=== PATIENT | male | born 1960 | race Caucasian/White ===

== ENCOUNTER 2016-07-21 15:14 | Emergency (ER) | payer BC, OTHER ==
[2016-07-21 15:54] LABS: Hematocrit 43 % (42-52); Hemoglobin 14.6 g/dl (14.0-18.0); Mean Corpuscular HGB Conc 34 g/dl (31-36); Mean Corpuscular Hemoglobin 31 pg (27-31); Mean Corpuscular Volume 90 fL (80-94); Mean Platelet Volume 10 um3 (7.4-10.4); Red Blood Count 4.79 10^6/ul (4.0-5.4); Red Cell Distribution Width 13 % (10.5-15); White Blood Count 6.5 10^3/ul (3.5-10.8)
[2016-07-21 16:28] LABS: Albumin 4.1 g/dL (3.2-5.2); BUN/Creatinine Ratio 14.9 (8-20); C Reactive Protein 11.09 mg/L (< 5.00); Calcium 9.1 mg/dL (8.6-10.3); EGFR Non-African American 82.4 (>60); Globulin 2.9 g/dL (2-4); Potassium 3.8 mmol/L (3.5-5.0); Total Bilirubin 0.3 mg/dL (0.2-1.0)
--- NOTE | 2016-07-21 17:25 | ED ---
Kassidy Liu Erika, scribed for Eugene Samuels MD on 07/21/16 at 1543 . GI/ HPI - HPI Summary HPI Summary: Patient is a 56-year-old male presenting to the ED with a CC of rectal bleeding with BMs starting 07/17/2016. Patient reports that he has had bright red blood with every BM since then, but has not had blood without a BM. He reports that he strains with BMs, and attributes this to not eating well and not drinking enough water. Currently, patient also reports a "nervous stomach" just today, but denies nausea, vomiting, and diarrhea. He states he is anxious. Most recent colonoscopy was a few years ago in [place]. Patient is currently taking Bactrim. Hx anxiety. PSHx hernia repair. FHx leukemia, [place]. Patient lives with his , does not smoke, and occasionally drinks. - History of Current Complaint Chief Complaint: EDGIBleed Time Seen by Provider: 07/21/16 15:24 Stated Complaint: RECTAL BLEEDING Hx Obtained From: Patient, Family/Marketing Representative - Onset/Duration: Started Days Ago, Atraumatic, Still Present Timing: Intermittent - with every BM Severity: Moderate Pain Intensity: 0 Associated Signs and Symptoms: Positive: Bright Red Blood w/Stool. Negative: Nausea, Vomiting, Diarrhea, Abdominal Pain Aggravating Factor(s): Straining Alleviating Factor(s): Nothing - Allergy/Home Medications Allergies/Adverse Reactions: Allergies Allergy/AdvReac Type Severity Reaction Status Date / Time No Known Allergies Allergy Verified 08/29/15 10:08 PMH/Surg Hx/FS Hx/Imm Hx Endocrine/Hematology History: Denies: Hx Diabetes, Hx Thyroid Disease Cardiovascular History: Reports: Hx Hypertension Denies: Hx Congestive Heart Failure Respiratory History: Denies: Hx Asthma, Hx Chronic Obstructive Pulmonary Disease (COPD) GI History: Denies: Hx Ulcer History: Denies: Hx Dialysis, Hx Renal Disease Psychiatric History: Reports: Hx Anxiety - Surgical History Surgery Procedure, Year, and Place: 1978 hernia repair, 1993 both wrists carple tunnel Infectious Disease History: Yes Infectious Disease History: Denies: Hx Hepatitis, Hx Human Immunodeficiency Virus (HIV), History Other Infectious Disease, Traveled Outside the [place] in Last 30 Days - Family History Known Family History: Positive: Other - leukemia, [place] - Social History Occupation: Employed Full-time Lives: With Family Alcohol Use: Occasionally Hx Tobacco Use: No Smoking Status (MU): Never Smoked Tobacco Review of Systems Gastrointestinal: Other - rectal bleeding with BMs Negative: Abdominal Pain, Vomiting, Diarrhea, Nausea Positive: Anxious All Other Systems Reviewed And Are Negative: Yes Physical Exam - Summary Physical Exam Summary: VITAL SIGNS: Reviewed. GENERAL: Patient is a well developed and nourished male who is lying comfortable in the stretcher. Patient is not in any acute respiratory distress. HEAD AND FACE: Normocephalic and atraumatic. EYES: PERRLA, EOMI x 2, No injected conjunctiva. EARS: Hearing grossly intact. Ear canals and tympanic membranes are WNL. MOUTH: Oropharynx within normal limits. NECK: Supple, trachea is midline, no adenopathy, no JVD. CHEST: Symmetric, no tenderness at palpation LUNGS: Clear to auscultation bilaterally. No wheezing or crackles. CVS: RRR,, S1 and S2 present, no murmurs or gallops appreciated. ABDOMEN: Soft, non-tender. No signs of distention. Positive bowel sounds. No rebound no guarding, and no masses palpated. No abdominal bruit or pulsations. RECTAL EXAM: Normal sphincter tone. No gross blood, no melena EXTREMITIES: FROM in all major joints, no edema, no cyanosis or clubbing. NEURO: Alert and oriented x 3. No acute neurological deficits. Speech is normal. SKIN: Dry and warm Triage Information Reviewed: Yes Vital Signs On Initial Exam: Initial Vitals Temp Pulse Resp BP Pulse Ox 97.6 F 84 18 134/82 98 07/21/16 15:15 07/21/16 15:15 07/21/16 15:15 07/21/16 15:15 07/21/16 15:15 Vital Signs Reviewed: Yes Diagnostics - Vital Signs Vital Signs Temp Pulse Resp BP Pulse Ox 07/21/16 15:15 97.6 F 84 18 134/82 98 - Laboratory Lab Results: Lab Results 07/21/16 Range/Units 15:38 WBC 6.5 (3.5-10.8) 10^3/ul RBC 4.79 (4.0-5.4) 10^6/ul Hgb 14.6 (14.0-18.0) g/dl Hct 43 (42-52) % MCV 90 (80-94) fL MCH 31 (27-31) pg MCHC 34 (31-36) g/dl RDW 13 (10.5-15) % Plt Count 179 (150-450) 10^3/ul MPV 10 (7.4-10.4) um3 Neut % (Auto) 58.7 (38-83) % Lymph % (Auto) 27.5 (25-47) % [place] % (Auto) 9.8 H (1-9) % Eos % (Auto) 3.3 (0-6) % Baso % (Auto) 0.7 (0-2) % Absolute Neuts (auto) 3.8 (1.5-7.7) 10^3/ul Absolute Lymphs (auto) 1.8 (1.0-4.8) 10^3/ul Absolute Monos (auto) 0.6 (0-0.8) 10^3/ul Absolute Eos (auto) 0.2 (0-0.6) 10^3/ul Absolute Basos (auto) 0 (0-0.2) 10^3/ul Absolute Nucleated RBC 0.01 10^3/ul Nucleated RBC % 0.1 Result Diagrams: 07/21/16 15:38 07/21/16 15:38 Lab Statement: Any lab studies that have been ordered have been reviewed, and results considered in the medical decision making process. Re-Evaluation - Re-Evaluation First Eval Re-Evaluation Time: 17:04 Comment: Discussed results and plan. Patient agrees. GIGU Course/Dx - Course Assessment/Plan: Patient is a 56-year-old male presenting to the ED with a CC of rectal bleeding with BMs starting 07/17/2016. Patient reports that he has had bright red blood with every BM since then, but has not had blood without a BM. He reports that he strains with BMs, and attributes this to not eating well and not drinking enough water. Currently, patient also reports a "nervous stomach" just today, but denies nausea, vomiting, and diarrhea. He states he is anxious. Most recent colonoscopy was a few years ago in [place]. Patient is currently taking Bactrim. Hx anxiety. PSHx hernia repair. FHx leukemia, [place]. Patient lives with his , does not smoke, and occasionally drinks. Blood work found to be WNL. Occult blood also negative. Therefore, maybe the pt is having some internal hemorrhoids, therefore the pt will be given Anusol and will be discharged home with follow up from his PCP, and GI as needed. Patient is hemodynamically stable and A&Ox3 with no acute neurological focal deficits. I discussed all the findings and test results with the patient. Patient was instructed to return to the emergency room immediately if any of the symptoms return or worsens. Plan of care was discussed with the patient and understands and agrees. All questions were answered at patient satisfaction. There were no further complaints or concerns. Lung exam before discharge: CTA B/L. Good air exchange. No wheezing or crackles heard. CVS: S1 and S2 present. No murmurs appreciated. Patient is alert and oriented x 3. Patient is hemodynamically stable. 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 in the next 2-3 days - Diagnoses Differential Diagnoses - Male: Hemorrhoids, Rectal Fissure, Other - GI bleed Provider Diagnoses: Rectal bleed, Hemorrhoids Discharge - Discharge Plan Condition: Stable Disposition: HOME Prescriptions: Hydrocortisone SUPP* [Anusol HC Supp*] 25 mg WI BEDTIME #5 supp Patient Education Materials: Rectal Bleeding (ED), Hemorrhoids (ED) Forms: *Work Release Referrals: Corinna Reyes NP [Primary Care Provider] - Hira Martell MD [Medical Doctor] - The documentation as recorded by the Kassidy estevez Erika accurately reflects the service I personally performed and the decisions made by me, Eugene Samuels MD.
[2016-07-21 17:26] VITALS: BP 132/76
== END 2016-07-21 17:24 | disposition home or self-care (01) ==
LOC: ED 15:14
DX: K64.9 Unspecified hemorrhoids (principal); F41.9 Anxiety disorder, unspecified; K62.5 Hemorrhage of anus and rectum
CPT/HCPCS: 36415; 80053; 82272; 85025; 86140; 99282

== ENCOUNTER 2017-12-17 18:54 | Emergency (ER) | payer BC ==
[2017-12-17] MEDS ORDERED: Pantoprazole IV* 40 MG IV ONE (19:53)
[2017-12-17] MEDS ORDERED: NS 0.9% 1000 ML* 1,000 ML IV ONE (19:53)
[2017-12-17] MEDS ORDERED: Morphine INJ* 2 MG/ML 1 ML SYRINGE (TWO MG - NEW SYRINGE VERSION) IV ONE (19:53)
[2017-12-17] MEDS ORDERED: Metoclopramide IV* 5 MG/ML 2 ML VIAL IV SLOW PU ONE (19:54)
--- NOTE | 2017-12-17 19:59 | ED ---
Abdominal Pain/Male - HPI Summary HPI Summary: This is herb Amaro documenting for attending Kirill Christine MD. This patient is a 57 year old M presenting to ED with a chief complaint of epigastric pain since 3 days ago. He reports it is usually epigastric but is currently more on the L side. The CC is described as constant pressure and non- radiating. The patient rates the pain 10/10 in severity. Symptoms aggravated by PO. Symptoms alleviated by nothing. Patient reports last BM was this afternoon and was normal and a REINA that is now resolved. Patient denies N/V/D. Last colostomy was a year ago and was normal. - History of Current Complaint Chief Complaint: EDAbdPain Stated Complaint: ABD PAIN Time Seen by Provider: 12/17/17 19:40 Hx Obtained From: Patient Onset/Duration: Sudden Onset, Lasting Days - 3 days ago, Still Present Timing: Constant, Lasting Days - 3 days ago Severity Initially: Severe Severity Currently: Severe Pain Intensity: 10 Pain Scale Used: 0-10 Numeric Location: Epigastric, Other - more currently on the L Radiates: No Character: Other: - pressure Aggravating Factor(s): Food Alleviating Factor(s): Nothing Associated Signs And Symptoms: Positive: Other - Patient reports last BM was this afternoon and was normal and a REINA that is now resolved. Patient denies N/V/ D. - Allergies/Home Medications Allergies/Adverse Reactions: Allergies Allergy/AdvReac Type Severity Reaction Status Date / Time No Known Allergies Allergy Verified 08/29/15 10:08 PMH/Surg Hx/FS Hx/Imm Hx Endocrine/Hematology History: Denies: Hx Diabetes, Hx Thyroid Disease Cardiovascular History: Reports: Hx Hypertension Denies: Hx Congestive Heart Failure Respiratory History: Denies: Hx Asthma, Hx Chronic Obstructive Pulmonary Disease (COPD) GI History: Denies: Hx Ulcer History: Denies: Hx Dialysis, Hx Renal Disease Psychiatric History: Reports: Hx Anxiety - Surgical History Surgery Procedure, Year, and Place: 1978 hernia repair, 1993 both wrists carple tunnel - Immunization History Immunizations Up to Date: Yes Infectious Disease History: No Infectious Disease History: Denies: Hx Hepatitis, Hx Human Immunodeficiency Virus (HIV), History Other Infectious Disease, Traveled Outside the [place] in Last 30 Days - Family History Known Family History: Positive: Other - leukemia, [place] - Social History Alcohol Use: Occasionally Substance Use Type: Reports: None Hx Tobacco Use: No Smoking Status (MU): Former Smoker Review of Systems Positive: Abdominal Pain - epigastric, now more on the L, Other - normal BM. Negative: Vomiting, Diarrhea, Nausea Positive: Headache - now resolved All Other Systems Reviewed And Are Negative: Yes Physical Exam - Summary Physical Exam Summary: VITAL SIGNS: Reviewed. GENERAL: Patient is a well-developed and nourished MALE who is lying comfortable in the stretcher. Patient is not in any acute respiratory distress. HEAD AND FACE: No signs of trauma. No ecchymosis, hematomas or skull depressions. No sinus tenderness. EYES: PERRLA, EOMI x 2, No injected conjunctiva, no nystagmus. EARS: Hearing grossly intact. Ear canals and tympanic membranes are within normal limits. MOUTH: Oropharynx within normal limits. NECK: Supple, trachea is midline, no adenopathy, no JVD, no carotid bruit, no c- spine tenderness, neck with full ROM. CHEST: Symmetric, no tenderness at palpation LUNGS: Clear to auscultation bilaterally. No wheezing or crackles. CVS: Regular rate and rhythm, S1 and S2 present, no murmurs or gallops appreciated. ABDOMEN: Soft, Epigastric tenderness. Distension. No rebound no guarding, and no masses palpated. Hypoactive bowel sounds. EXTREMITIES: FROM in all major joints, no edema, no cyanosis or clubbing. NEURO: Alert and oriented x 3. No acute neurological deficits. Speech is normal and follows commands. SKIN: Dry and warm Triage Information Reviewed: Yes Vital Signs On Initial Exam: Initial Vitals Temp Pulse Resp BP Pulse Ox 98.4 F 74 18 146/86 99 12/17/17 19:06 12/17/17 19:06 12/17/17 19:06 12/17/17 19:06 12/17/17 19:06 Vital Signs Reviewed: Yes Diagnostics - Vital Signs Vital Signs Temp Pulse Resp BP Pulse Ox 12/17/17 19:06 98.4 F 74 18 146/86 99 - Laboratory Result Diagrams: 12/17/17 20:58 12/17/17 20:58 Lab Statement: Any lab studies that have been ordered have been reviewed, and results considered in the medical decision making process. - Ultrasound No standard instances Ultrasound Interpretation Completed By: Radiologist - Gallbladder US reveals 1. No acute findings. No cholelithiasis. 2. Pancreas and aorta obscured by bowel gas. ED physician has reviewed this radiology report. Abdominal Pain Fem Course/Dx - Course Assessment/Plan: This patient is a 57 yo male who is here in the ED for epigastric pain for 3 days. He has no other sx. On exam, he presents with epigastric tenderness. The US is negative for any stones. His labs are essentially normal. It is most likely GERD. He will be D/C home iwth Protonix. Patient understands and agrees. - Diagnoses Differential Diagnosis/HQI/PQRI: Other - GERD Provider Diagnoses: GERD (gastroesophageal reflux disease) Discharge - Sign-Out/Discharge Documenting (check all that apply): Patient Departure - Discharge Plan Condition: Stable Disposition: HOME Prescriptions: Pantoprazole TAB (NF) [Protonix TAB (NF)] 40 mg PO DAILY #30 tab Patient Education Materials: Gastroesophageal Reflux Disease (ED) Referrals: Corinna Reyes NP [Primary Care Provider] - (Follow up in 1-2 days.) Additional Instructions: RETURN TO THE EMERGENCY DEPARTMENT FOR CHANGING OR WORSENING SYMPTOMS.
[2017-12-17 21:06] LABS: ABS Basophils 0 10^3/ul (0-0.2); ABS Eosinophils 0.2 10^3/ul (0-0.6); ABS Lymphocytes 1.5 10^3/ul (1.0-4.8); ABS Monocytes 0.7 10^3/ul (0-0.8); ABS Neutrophils 4.9 10^3/ul (1.5-7.7); ABS Nucleated RBC 0 10^3/ul; Eosinophil % 2.9 % (0-6); Hematocrit 39 % (42-52); Hemoglobin 13.4 g/dl (14.0-18.0); Mean Corpuscular HGB Conc 34 g/dl (31-36); Mean Corpuscular Hemoglobin 31 pg (27-31); Mean Corpuscular Volume 92 fL (80-94); Mean Platelet Volume 9.4 um3 (7.4-10.4); Nucleated Red Blood Cells % 0; Platelet Count 129 10^3/ul (150-450); Red Blood Count 4.27 10^6/ul (4.00-5.40); Red Cell Distribution Width 13 % (10.5-15); White Blood Count 7.3 10^3/ul (3.5-10.8)
[2017-12-17 21:14] LABS: INR 0.97 (0.77-1.02)
[2017-12-17 21:26] LABS: EGFR Non-African American 82.1 (>60)
[2017-12-17] MEDS ORDERED: Al Hydrox/Mg Hydrox/Simet LIQ* 30 ML UDC PO ONE (21:38)
[2017-12-17] MEDS ORDERED: Lidocaine 2% VISCOUS* 15 ML UDC PO ONE (21:38)
[2017-12-17] MEDS ORDERED: Pantoprazole TAB (NF) 40 MG TAB PO ONE (21:42)
[2017-12-17 22:23] VITALS: BP 133/87
--- NOTE | 2017-12-18 07:19 | RAD ---
INDICATION: Abdominal pain. COMPARISON: Correlation is made with a prior CT of the abdomen and pelvis from November 03, 2014. TECHNIQUE: Multiple real-time images of the right upper quadrant were obtained. FINDINGS: The gallbladder appear normal. No gallstones, gallbladder wall thickening or pericholecystic fluid is present. No intra or extrahepatic ductal distention is present. The common bile duct measured 0.6 cm in diameter. The liver is normal in size without significant focal abnormality. The pancreas is obscured by overlying bowel gas. The right kidney is normal in size without evidence for hydronephrosis. IMPRESSION: 1. NORMAL EXAMINATION OF THE GALLBLADDER. 2. THE PANCREAS IS OBSCURED BY OVERLYING BOWEL GAS.
== END 2017-12-17 20:22 | disposition home or self-care (01) ==
LOC: ED 18:54
DX: K21.9 Gastro-esophageal reflux disease without esophagitis (principal); Z87.891 Personal history of nicotine dependence
CPT/HCPCS: 36415; 76705; 80053; 82150; 83605; 83690; 83735; 85025; 85610; 85730; 86140; 96374; 96375; 99282; A9270-GY

== ENCOUNTER 2017-12-18 13:07 | Emergency (ER) | payer BC ==
--- NOTE | 2017-12-18 14:08 | ED ---
Abdominal Pain/Male - HPI Summary HPI Summary: This is herb Donato documenting for attending Hayden Early MD. Patient is a 57 y/o M w/ c/o abdominal pain onsetting 4 days ago. Patient specifically notes left-sided abdominal pain but also states pain is located in his entire abdominal region as well. Pain was previously concentrated at his epigastric region but has since moved to left side of abdomen. Pain is not reported to radiate. On triage, pain is rated 10/10. Patient was seen here previously and was told to take omiprazole. Omiprazole offered no relief to Sx. He notes eating, drinking, and lying on his sides aggravate pain. He denies nausea but reports some loss of appetite. Home medications and allergies reviewed. - History of Current Complaint Chief Complaint: EDAbdPain Stated Complaint: ABD PAIN Time Seen by Provider: 12/18/17 13:58 Hx Obtained From: Patient Onset/Duration: Lasting Days - onset four days ago Timing: Constant Severity Currently: Severe Pain Intensity: 10 Pain Scale Used: 0-10 Numeric - 10/10 Location: Diffuse - patient specifically notes left side abdominal pain but also reports pain is located in entire abominal region Radiates: No Aggravating Factor(s): Food, Other: - drinking, lying on sides Alleviating Factor(s): Nothing Associated Signs And Symptoms: Positive: Decreased Appetite. Negative: Nausea - Allergies/Home Medications Allergies/Adverse Reactions: Allergies Allergy/AdvReac Type Severity Reaction Status Date / Time No Known Allergies Allergy Verified 12/18/17 13:43 PMH/Surg Hx/FS Hx/Imm Hx Endocrine/Hematology History: Denies: Hx Diabetes, Hx Thyroid Disease Cardiovascular History: Reports: Hx Hypertension Denies: Hx Congestive Heart Failure Respiratory History: Denies: Hx Asthma, Hx Chronic Obstructive Pulmonary Disease (COPD) GI History: Denies: Hx Ulcer History: Denies: Hx Dialysis, Hx Renal Disease Psychiatric History: Reports: Hx Anxiety - Surgical History Surgery Procedure, Year, and Place: 1978 hernia repair, 1993 both wrists carple tunnel Infectious Disease History: No Infectious Disease History: Denies: Hx Hepatitis, Hx Human Immunodeficiency Virus (HIV), History Other Infectious Disease, Traveled Outside the [place] in Last 30 Days - Family History Known Family History: Positive: Other - leukemia, [place] - Social History Alcohol Use: Occasionally Substance Use Type: Reports: None Hx Tobacco Use: No Smoking Status (MU): Former Smoker Review of Systems Negative: Fever - on vitals, temperature is noted to be 97.7 F Positive: Abdominal Pain - noted at left side but reported to have pain in entire abdominal region , Other - loss of appetite . Negative: Nausea All Other Systems Reviewed And Are Negative: Yes Physical Exam - Summary Physical Exam Summary: Appearance: The patient is well-nourished in no acute distress and in no acute pain. Skin: The skin is warm and dry and skin color reflects adequate perfusion. HEENT: The head is normocephalic and atraumatic. The pupils are equal and reactive. The conjunctivae are clear and without drainage. Nares are patent and without drainage. Mouth reveals moist mucous membranes and the throat is without erythema and exudate. The external ears are intact. The ear canals are patent and without drainage. The tympanic membranes are intact. Neck: The neck is supple with full range of motion and non-tender. There are no carotid bruits. There is no neck vein distension. Respiratory: Chest is non-tender. Lungs are clear to auscultation and breath sounds are symmetrical and equal. Cardiovascular: Heart is regular rate and rhythm. There is no murmur or rub auscultated. There is no peripheral edema and pulses are symmetrical and equal. Abdomen: The abdomen is soft and mildly tender at the LUQ and epigastric region. There are normal bowel sounds heard in all four quadrants and there is no organomegaly palpated. Musculoskeletal: There is no back tenderness noted. Extremities are non-tender with full range of motion. There is good capillary refill. There is no peripheral edema or calf tenderness elicited. Neurological: Patient is alert and oriented to person, place and time. The patient has symmetrical motor strength in all four extremities. Cranial nerves are grossly intact. Deep tendon reflexes are symmetrical and equal in all four extremities. Psychiatric: The patient has an appropriate affect and does not exhibit any anxiety or depression. Triage Information Reviewed: Yes Vital Signs On Initial Exam: Initial Vitals Temp Pulse Resp BP Pulse Ox 97.7 F 70 16 137/84 99 12/18/17 13:37 12/18/17 13:37 12/18/17 13:37 12/18/17 13:37 12/18/17 13:37 Vital Signs Reviewed: Yes Diagnostics - Vital Signs Vital Signs Temp Pulse Resp BP Pulse Ox 12/18/17 13:37 97.7 F 70 16 137/84 99 - Laboratory Result Diagrams: 12/18/17 14:28 Lab Statement: Any lab studies that have been ordered have been reviewed, and results considered in the medical decision making process. - CT CT abd/pel CT Interpretation: Positive (See Comments) CT Interpretation Completed By: Radiologist - Findings suggestive of pancreatitis. Recommend clinical correlation and follow-up. This report was reviewed by ED physician. Re-Evaluation - Re-Evaluation First Eval Re-Evaluation Time: 15:20 Comment: Discussed results of labs and tests. Follow up plan for patient to be discharged to home and see PCP next week was discussed. Patient is agreeable with plan. Abdominal Pain Fem Course/Dx - Course Course Of Treatment: Mr. Miguel presented complaining of epigastric pain. He was here in the emergency department for that yesterday and evaluated with ultrasound and labs. It was felt to be epigastric in nature and he was given omeprazole which he states is not helping. His lipase was 48 yesterday and [address] scan was read as possible early pancreatitis. I discussed this with him recommended pain control and follow-up. He does drink occasionally but denies every day alcohol use however I recommended he have no alcohol until this is resolved. - Diagnoses Provider Diagnoses: Pancreatitis Discharge - Sign-Out/Discharge Documenting (check all that apply): Patient Departure - discharge - Discharge Plan Condition: Stable Disposition: HOME Prescriptions: HYDROcodone/ACETAMIN 5-325 MG* [[place] 5-325 TAB*] 1 tab PO Q6H PRN #20 tab MDD 4 PRN Reason: Pain Patient Education Materials: Pancreatitis (ED) Referrals: Corinna Reyes NP [Primary Care Provider] - 1 Week Additional Instructions: Follow up with PCP next week. Return to ED for any new or worsening symptoms. Do not consume alcohol. - Billing Disposition and Condition Condition: STABLE Disposition: Home
[2017-12-18] MEDS ORDERED: Sucralfate TAB* 1 GM PO ONE (14:13)
[2017-12-18 14:40] LABS: ABS Basophils 0 10^3/ul (0-0.2); ABS Eosinophils 0.2 10^3/ul (0-0.6); ABS Lymphocytes 1.1 10^3/ul (1.0-4.8); ABS Monocytes 0.9 10^3/ul (0-0.8); ABS Neutrophils 6.7 10^3/ul (1.5-7.7); ABS Nucleated RBC 0 10^3/ul; Eosinophil % 2.5 % (0-6); Hematocrit 43 % (42-52); Hemoglobin 14.7 g/dl (14.0-18.0); Lymphocyte % 11.9 % (25-47); Mean Corpuscular HGB Conc 34 g/dl (31-36); Mean Corpuscular Hemoglobin 32 pg (27-31); Mean Corpuscular Volume 92 fL (80-94); Mean Platelet Volume 9.7 um3 (7.4-10.4); Nucleated Red Blood Cells % 0; Platelet Count 154 10^3/ul (150-450); Red Blood Count 4.66 10^6/ul (4.00-5.40); Red Cell Distribution Width 13 % (10.5-15); White Blood Count 8.9 10^3/ul (3.5-10.8)
--- NOTE | 2017-12-18 14:41 | RAD ---
INDICATION: Left flank abdominal pain. COMPARISON: Comparison is made with a prior CT of the abdomen and pelvis from November 03, 2014. TECHNIQUE: A CT scan of the abdomen and pelvis was performed without intravenous and without oral contrast. Contiguous axial sections were obtained from the lung bases through the symphysis pubis. Images were reconstructed in the coronal and sagittal planes. FINDINGS: The lung bases are clear. No pleural effusion is present. The liver and spleen are normal in size without significant focal abnormality on this noncontrast study. No calcified gallstones are seen. No pancreatic ductal distention or calcifications are seen. There is mild interstitial stranding around the body and head of the pancreas suspicious for pancreatitis. No pseudocyst or fluid collection is seen. The adrenal glands and kidneys are normal in size. No renal calculi or hydronephrosis is seen. No ureteral or bladder calculi are seen. The bladder wall appears diffusely thickened likely due to incomplete distention. The aorta is normal in caliber with mild calcific plaque present. No significant enlarged retroperitoneal lymph nodes are seen. The stomach, small and large bowel appear nondistended. The appendix is within normal limits. There is a moderate amount of retained stool present throughout the colon. There are scattered diverticuli within the colon. There is no evidence for diverticulitis or colitis. No free intraperitoneal air or fluid is seen. No significant focal osseous abnormality is seen. IMPRESSION: FINDINGS SUGGESTIVE OF PANCREATITIS. RECOMMEND CLINICAL CORRELATION AND FOLLOW-UP.
[2017-12-18 16:00] VITALS: BP 123/80
== END 2017-12-18 16:00 | disposition home or self-care (01) ==
LOC: ED 13:07
DX: K85.90 Acute pancreatitis without necrosis or infection, unspecified (principal); Z87.891 Personal history of nicotine dependence
CPT/HCPCS: 36415; 74176; 83690; 85025; 99282; A9270-GY